=== PATIENT | male | born 1990 | race Caucasian/White ===

== ENCOUNTER 2021-09-12 15:13 | Emergency (ER) | payer BC, MEDICAID ==
[~2021-09-12] VITALS: Ht 177.8 cm; Wt 90.9 kg
[2021-09-12 15:18] VITALS: BP 132/97
== END 2021-09-12 19:30 | disposition left against medical advice (07) ==
LOC: ER 15:15
DX: R07.9 Chest pain, unspecified (principal); Z53.21 Procedure and treatment not carried out due to patient leaving prior to being seen by health care provider
CPT/HCPCS: 93005

== ENCOUNTER 2023-11-11 19:04 | Emergency (ER) | payer BC, MEDICAID ==
[~2023-11-11] VITALS: Ht 177.8 cm; Wt 104.5 kg
[2023-11-11 19:15] VITALS: BP 143/102; PULSE 96; RESP 18; TEMP 98.5; O2SAT 98
[2023-11-11] MEDS ORDERED: LIDOcaine 4% (40 mg/ml) topical solution 50ml TP ONE (19:35)
[2023-11-11] MEDS ORDERED: LIDOcaine 1% 30ml preserv. free vial IJ ONE (19:35)
[2023-11-11] MEDS: TETanus/Pertussis (Acell)/Diphther VAC/PF (Tdap-Adult) 0.5ml syringe IMVAC ONE (19:52)
== END 2023-11-11 20:15 | disposition home or self-care (01) ==
LOC: ER 19:05
DX: S61.211A Laceration without foreign body of left index finger without damage to nail, initial encounter (principal); W26.8XXA Contact with other sharp object(s), not elsewhere classified, initial encounter; Y93.89 Activity, other specified; Y92.89 Other specified places as the place of occurrence of the external cause; Y99.8 Other external cause status
CPT/HCPCS: 90471; 90715; 99283